=== PATIENT | male | born 1965 | race Caucasian/White ===

== ENCOUNTER → 2016-03-15 | Outpatient (CLI) | payer BC ==
[2016-03-15 09:03] LABS: ALT 53 U/L (21-72); AST 29 U/L (17-59); Cholesterol 180 mg/dL (<200); Creatine Kinase 164 U/L (55-170); HDL Cholesterol 61 mg/dL (40-60); Triglycerides 92 mg/dL (<150)
== END | disposition home or self-care (01) ==
LOC: LABWHC1 08:13
PROVIDERS: ATTEND Internal Medicine
DX: E78.2 Mixed hyperlipidemia (principal)
CPT/HCPCS: 36415; 80061; 82550; 84450; 84460

== ENCOUNTER → 2016-04-09 | Outpatient (CLI) | payer BC ==
--- NOTE | 2016-04-09 09:06 | US ---
EXAMINATION TYPE: US kidneys/renal and bladder DATE OF EXAM: 04/09/2016 7:18 AM COMPARISON: CT abdomen August 03, 2015. CLINICAL HISTORY: R31.9 HEMATURIA. EXAM MEASUREMENTS: Right Kidney: 10.4 x 5.4 x 5.4 cm Left Kidney: 10.7 x 5.4 x 5.0 cm TECHNOLOGIST IMPRESSION: Right Kidney: No hydronephrosis or masses seen Left Kidney: No hydronephrosis or masses seen Bladder: wnl Bilateral Jets seen: Yes There is no evidence for hydronephrosis at this point in time. No masses are identified. The urinar y bladder is anechoic. Bilateral ureteral jets are seen. IMPRESSION: No significant finding is seen to account for patient's symptoms.
== END | disposition home or self-care (01) ==
LOC: RADUSWWP 06:55
PROVIDERS: ATTEND Internal Medicine
DX: R31.9 Hematuria, unspecified (principal)
CPT/HCPCS: 76770

== ENCOUNTER → 2016-07-13 | Outpatient (CLI) | payer BC ==
[2016-07-13 10:05] LABS: ALT 41 U/L (21-72); AST 23 U/L (17-59); Cholesterol 173 mg/dL (<200); Creatine Kinase 148 U/L (55-170); HDL Cholesterol 69 mg/dL (40-60); Triglycerides 76 mg/dL (<150)
== END | disposition home or self-care (01) ==
LOC: LABWHC1 08:58
PROVIDERS: ATTEND Internal Medicine
DX: E78.2 Mixed hyperlipidemia (principal)
CPT/HCPCS: 36415; 80061; 82550; 84450; 84460

== ENCOUNTER → 2016-10-11 | Outpatient (CLI) | payer BC ==
[2016-10-11 09:24] LABS: CH 32.8; CHCM 34.1; HCT 49.3 % (39.0-53.0); HDW 2.36; HGB 15.9 gm/dL (13.0-17.5); MCH 31.2 pg (25.0-35.0); MCHC 32.3 g/dL (31.0-37.0); MCV 96.5 fL (80.0-100.0); Mean Platelet Volume 7.9; RBC 5.11 m/uL (4.30-5.90); RDW 13.8 % (11.5-15.5); WBC 5.7 k/uL (3.8-10.6)
[2016-10-11 09:49] LABS: Appearance,Urine Clear (Clear); Bilirubin,Urine Negative (Negative); Glucose,Urine (UA) Negative (Negative); Ketones,Urine Negative (Negative); Leukocyte Esterase,Urine Negative (Negative); Mucus,Urine Rare /hpf; Nitrite,Urine Negative (Negative); Particle Count 2361; Protein,Urine 1+ (Negative); RBC,Urine 2 /hpf (0-5); Specific Gravity,Urine 1.021 (1.001-1.035); Squamous Epithelial Cell,Urine <1 /hpf (0-4); UA Billing (MACRO vs. MICRO) MICRO; Urobilinogen,Urine <2.0 mg/dL (<2.0); WBC,Urine <1 /hpf (0-5)
[2016-10-11 10:40] LABS: ALT 48 U/L (21-72); AST 26 U/L (17-59); Alkaline Phosphatase 64 U/L (38-126); Anion Gap 10 mmol/L; Blood Urea Nitrogen 22 mg/dL (9-20); Calcium 9.5 mg/dL (8.4-10.2); Carbon Dioxide 25 mmol/L (22-30); Chloride 107 mmol/L (98-107); Cholesterol 170 mg/dL (<200); Glucose 111 mg/dL (74-99); HDL Cholesterol 66 mg/dL (40-60); Non-African American GFR(MDRD) >60 (>60 ml/min/1.73 sqM); Potassium 4.5 mmol/L (3.5-5.1); Sodium 142 mmol/L (137-145); Total Bilirubin 0.6 mg/dL (0.2-1.3); Total Protein 6.8 g/dL (6.3-8.2)
[2016-10-11 11:13] LABS: Prostate Specific Antigen 0.66 ng/mL (0.00-4.00)
--- NOTE | 2016-10-11 12:05 | XR ---
EXAMINATION TYPE: XR chest 2V DATE OF EXAM: 10/11/2016 COMPARISON: Prior chest x-ray 06/03/2015 HISTORY: Physical TECHNIQUE: Frontal and lateral views of the chest are obtained. FINDINGS: There is no focal air space opacity, pleural effusion, or pneumothorax seen. The cardiac silhouette size is within normal limits. The osseous structures are intact. IMPRESSION: No acute cardiopulmonary process.
== END | disposition home or self-care (01) ==
LOC: LABWHC1 08:57
PROVIDERS: ATTEND Internal Medicine
DX: Z00.00 Encounter for general adult medical examination without abnormal findings (principal); E78.2 Mixed hyperlipidemia; K21.0 Gastro-esophageal reflux disease with esophagitis; R31.9 Hematuria, unspecified
CPT/HCPCS: 36415; 71020; 80053; 80061; 81001; 82272; 84153; 84439; 84443; 85027

== ENCOUNTER → 2017-06-17 | Outpatient (CLI) | payer BC ==
[2017-06-17 08:42] LABS: Cholesterol 163 mg/dL (<200); Glucose 102 mg/dL (74-99); HDL Cholesterol 57 mg/dL (40-60); LDL Cholesterol,Calculated 85 mg/dL (0-99); Triglycerides 107 mg/dL (<150)
[2017-06-17 20:33] LABS: Hemoglobin A1C 5.7 % (4.0-6.0)
== END | disposition home or self-care (01) ==
LOC: LABWHC1 08:10
PROVIDERS: ATTEND Internal Medicine
DX: E78.2 Mixed hyperlipidemia (principal); R73.9 Hyperglycemia, unspecified
CPT/HCPCS: 36415; 80061; 82947; 83036

== ENCOUNTER → 2018-03-02 | Outpatient (CLI) | payer BC ==
[2018-03-02 08:25] LABS: HCT 45.8 % (39.0-53.0); HGB 15.2 gm/dL (13.0-17.5); MCH 31.4 pg (25.0-35.0); MCHC 33.2 g/dL (31.0-37.0); MCV 94.7 fL (80.0-100.0); Mean Platelet Volume 7.1; Platelet Count 199 k/uL (150-450); RBC 4.84 m/uL (4.30-5.90); WBC 4.9 k/uL (3.8-10.6)
--- NOTE | 2018-03-02 08:48 | XR ---
EXAMINATION TYPE: XR shoulder complete LT DATE OF EXAM: 03/02/2018 CLINICAL HISTORY: Left shoulder pain with difficulty elevating the left shoulder. Fall several years ago. TECHNIQUE: Three views of the left shoulder are obtained. COMPARISON: None. FINDINGS: There is no acute fracture/dislocation evident in the left shoulder. The acromioclavicula r joint demonstrates moderate arthropathy with marginal osteophytes and capsular hypertrophy. The vi sualized ribs are intact and unremarkable. IMPRESSION: There is no acute fracture or dislocation in the left shoulder. Moderate left acromiocla vicular arthropathy. MRI could evaluate the rotator cuff given the patient's symptoms.
[2018-03-02 16:16] LABS: LDL Cholesterol,Calculated 94.6 mg/dL (0.0-131.0); VLDL Calculation 16.4 mg/dL (5.00-40.00)
[2018-03-02 16:17] LABS: Albumin 4.4 g/dL (3.80-4.90); Albumin/Globulin Ratio 2.32 (1.20-2.10); Anion Gap 5.3 mmol/L (4.00-12.00); Calcium 8.9 mg/dL (8.7-10.3); Carbon Dioxide 29.7 mmol/L (21.6-31.8); Globulin 1.9 g/dL (1.6-3.3); Potassium 4.3 mmol/L (3.5-5.5); Total Bilirubin 0.7 mg/dL (0.3-1.2); Total Protein 6.3 g/dL (6.2-8.2)
[2018-03-02 16:23] LABS: T4, Free (Free Thyroxine) 1.1 ng/dL (0.80-1.80)
== END ==
LOC: LABWHC1 08:08
PROVIDERS: ATTEND Internal Medicine
DX: M19.012 Primary osteoarthritis, left shoulder (principal); I11.9 Hypertensive heart disease without heart failure; E78.2 Mixed hyperlipidemia; I49.9 Cardiac arrhythmia, unspecified; K21.0 Gastro-esophageal reflux disease with esophagitis; N40.0 Benign prostatic hyperplasia without lower urinary tract symptoms; Z00.00 Encounter for general adult medical examination without abnormal findings
CPT/HCPCS: 36415; 80053; 80061; 82272; 84153; 84439; 84443; 85027

== ENCOUNTER 2019-11-18 18:42 | Observation (INO) | payer BC ==
--- NOTE | 2019-11-18 19:36 | ED ---
General Adult HPI - General Chief complaint: Chest Pain Stated complaint: Chest pain Time Seen by Provider: 11/18/19 19:02 Source: patient, RN notes reviewed, old records reviewed Mode of arrival: ambulatory Limitations: no limitations - History of Present Illness Initial comments: 54-year-old male with 1 day history of left-sided chest pain. Patient states his symptoms began today. He states it is somewhat positional. Additionally has dyspnea and the pain is worse with deep inspiration. He denies history of CAD, denies history of DVT or PE. He reports a minor right ankle injury approximately one week ago removing a boat dock. No fever. No cough. Patient was seen at urgent care and sent into the emergency department for evaluation including laboratory testing, troponin. - Related Data Home Medications Medication Instructions Recorded Confirmed Aspirin EC [Ecotrin Low Dose] 81 mg PO DAILY 11/18/19 11/18/19 Atorvastatin [Lipitor] 20 mg PO DAILY 11/18/19 11/18/19 Allergies Allergy/AdvReac Type Severity Reaction Status Date / Time No Known Allergies Allergy Verified 11/18/19 20:36 Review of Systems ROS Statement: Those systems with pertinent positive or pertinent negative responses have been documented in the HPI. ROS Other: All systems not noted in ROS Statement are negative. Past Medical History Past Medical History: Hyperlipidemia History of Any Multi-Drug Resistant Organisms: None Reported Additional Past Surgical History / Comment(s): colonoscopy Past Psychological History: No Psychological Hx Reported Smoking Status: Never smoker Past Alcohol Use History: Occasional Past Drug Use History: None Reported General Exam Limitations: no limitations General appearance: alert, in no apparent distress Head exam: Present: atraumatic, normocephalic Eye exam: Present: normal appearance, PERRL ENT exam: Present: normal exam Neck exam: Present: normal inspection. Absent: tenderness, meningismus Respiratory exam: Present: respiratory distress (Mild), decreased breath sounds (Decreased lung sounds left lung base) Cardiovascular Exam: Present: regular rate, normal rhythm. Absent: bradycardia, tachycardia GI/Abdominal exam: Present: soft. Absent: distended, tenderness, guarding Extremities exam: Present: normal inspection. Absent: pedal edema Neurological exam: Present: alert, oriented X3, CN II-XII intact. Absent: motor sensory deficit Psychiatric exam: Present: normal affect, normal mood Skin exam: Present: warm, dry, intact. Absent: cyanosis, diaphoretic Course Vital Signs 11/18/19 11/18/19 18:53 20:45 Temperature 98.7 F Pulse Rate 87 86 Respiratory 18 18 Rate Blood Pressure 145/72 115/75 O2 Sat by Pulse 98 95 Oximetry EKG Findings - EKG Comments: EKG Findings:: EKG: Sinus rhythm with PVC, LVH, rate of 72, NE interval 154, QRS duration 90, QTC [address] segment elevation. Medical Decision Making - Medical Decision Making 54-year-old male otherwise healthy presenting for evaluation of left-sided chest pain. History is concerning for pulmonary embolism. Workup was initiated. Patient has EKG showing sinus rhythm with no ischemic changes. Chest x-ray negative for pneumothorax. CT angiography is performed and shows a large filling defect in the left lung base. Patient is started on heparin. Patient has stable hemoglobin, normal troponin, and overall normal laboratory testing. Case discussed with Dr. Reyes covering for vascular surgery, recommends echo and will follow patient for need for intervention. Case discussed with Dr. Moses. - Lab Data Result diagrams: 11/18/19 19:29 11/18/19 19:29 Lab Results 11/18/19 11/18/19 11/18/19 Range/Units 19:29 19:29 19:29 WBC 12.0 H (3.8-10.6) k/uL RBC 4.76 (4.30-5.90) m/uL Hgb 14.6 (13.0-17.5) gm/dL Hct 44.1 (39.0-53.0) % MCV 92.6 (80.0-100.0) fL MCH 30.7 (25.0-35.0) pg MCHC 33.2 (31.0-37.0) g/dL RDW 12.6 (11.5-15.5) % Plt Count 241 (150-450) k/uL Neutrophils % 83 % Lymphocytes % 8 % Monocytes % 7 % Eosinophils % 1 % Basophils % 0 % Neutrophils # 9.9 H (1.3-7.7) k/uL Lymphocytes # 1.0 (1.0-4.8) k/uL Monocytes # 0.9 (0-1.0) k/uL Eosinophils # 0.1 (0-0.7) k/uL Basophils # 0.1 (0-0.2) k/uL PT 9.7 (9.0-12.0) sec INR 0.9 (<1.2) APTT 25.8 (22.0-30.0) sec Sodium 137 (137-145) mmol/L Potassium 4.3 (3.5-5.1) mmol/L Chloride 103 (98-107) mmol/L Carbon Dioxide 26 (22-30) mmol/L Anion Gap 8 mmol/L BUN 23 H (9-20) mg/dL Creatinine 1.02 (0.66-1.25) mg/dL Est GFR (CKD-EPI)AfAm >90 (>60 ml/min/1.73 sqM) Est GFR (CKD-EPI)NonAf 84 (>60 ml/min/1.73 sqM) Glucose 125 H (74-99) mg/dL Calcium 9.6 (8.4-10.2) mg/dL Magnesium 1.9 (1.6-2.3) mg/dL Total Bilirubin 0.9 (0.2-1.3) mg/dL AST 39 (17-59) U/L ALT 32 (4-49) U/L Alkaline Phosphatase 73 (38-126) U/L Troponin I (0.000-0.034) ng/mL Total Protein 7.3 (6.3-8.2) g/dL Albumin 4.4 (3.5-5.0) g/dL 11/18/19 Range/Units 19:29 WBC (3.8-10.6) k/uL RBC (4.30-5.90) m/uL Hgb (13.0-17.5) gm/dL Hct (39.0-53.0) % MCV (80.0-100.0) fL MCH (25.0-35.0) pg MCHC (31.0-37.0) g/dL RDW (11.5-15.5) % Plt Count (150-450) k/uL Neutrophils % % Lymphocytes % % Monocytes % % Eosinophils % % Basophils % % Neutrophils # (1.3-7.7) k/uL Lymphocytes # (1.0-4.8) k/uL Monocytes # (0-1.0) k/uL Eosinophils # (0-0.7) k/uL Basophils # (0-0.2) k/uL PT (9.0-12.0) sec INR (<1.2) APTT (22.0-30.0) sec Sodium (137-145) mmol/L Potassium (3.5-5.1) mmol/L Chloride (98-107) mmol/L Carbon Dioxide (22-30) mmol/L Anion Gap mmol/L BUN (9-20) mg/dL Creatinine (0.66-1.25) mg/dL Est GFR (CKD-EPI)AfAm (>60 ml/min/1.73 sqM) Est GFR (CKD-EPI)NonAf (>60 ml/min/1.73 sqM) Glucose (74-99) mg/dL Calcium (8.4-10.2) mg/dL Magnesium (1.6-2.3) mg/dL Total Bilirubin (0.2-1.3) mg/dL AST (17-59) U/L ALT (4-49) U/L Alkaline Phosphatase (38-126) U/L Troponin I <0.012 (0.000-0.034) ng/mL Total Protein (6.3-8.2) g/dL Albumin (3.5-5.0) g/dL Critical Care Time Critical Care Time: Yes Total Critical Care Time: 35 Disposition Clinical Impression: Pulmonary embolism Disposition: ADMITTED IP TO THIS [facility] Condition: Stable Is patient prescribed a controlled substance at d/c from ED?: No Referrals: Deng French DO [Doctor of Osteopathic Medicine] - 1-2 days Decision to Admit Reason: Admit from EC Decision Date: 11/18/19 Decision Time: 21:01
[2019-11-18 19:45] LABS: Basophils # (A) 0.1 k/uL (0-0.2); Basophils % (A) 0 %; Eosinophils # (A) 0.1 k/uL (0-0.7); Eosinophils % (A) 1 %; HCT 44.1 % (39.0-53.0); HGB 14.6 gm/dL (13.0-17.5); Lymphocytes % (A) 8 %; MCH 30.7 pg (25.0-35.0); MCHC 33.2 g/dL (31.0-37.0); MCV 92.6 fL (80.0-100.0); Mean Platelet Volume 7.3; Monocytes # (A) 0.9 k/uL (0-1.0); Monocytes % (A) 7 %; Neutrophils # (A) 9.9 k/uL (1.3-7.7); Neutrophils % (A) 83 %; Platelet Count 241 k/uL (150-450); RBC 4.76 m/uL (4.30-5.90); RDW 12.6 % (11.5-15.5)
[2019-11-18 19:54] LABS: INR 0.9 (<1.2); Prothrombin Time 9.7 sec (9.0-12.0)
[2019-11-18 19:55] LABS: Partial Thromboplastin Time 25.8 sec (22.0-30.0)
[2019-11-18 19:58] LABS: ALT 32 U/L (4-49); AST 39 U/L (17-59); African American GFR (CKD) >90 (>60 ml/min/1.73 sqM); Albumin 4.4 g/dL (3.5-5.0); Alkaline Phosphatase 73 U/L (38-126); Anion Gap 8 mmol/L; Blood Urea Nitrogen 23 mg/dL (9-20); Calcium 9.6 mg/dL (8.4-10.2); Carbon Dioxide 26 mmol/L (22-30); Chloride 103 mmol/L (98-107); Glucose 125 mg/dL (74-99); Magnesium 1.9 mg/dL (1.6-2.3); Non-African American GFR(CKD) 84 (>60 ml/min/1.73 sqM); Potassium 4.3 mmol/L (3.5-5.1); Sodium 137 mmol/L (137-145); Total Bilirubin 0.9 mg/dL (0.2-1.3); Total Protein 7.3 g/dL (6.3-8.2)
--- NOTE | 2019-11-18 20:11 | XR ---
EXAMINATION TYPE: XR chest 1V portable DATE OF EXAM: 11/18/2019 COMPARISON: NONE HISTORY: Chest pain TECHNIQUE: FINDINGS: There is poor inspiration. Heart appears normal. There is no heart failure. There is a mini mal infiltrate at the lateral left lung base. Pulmonary vascularity is normal. The bony thorax is int act. IMPRESSION: Poor inspiration with a minimal infiltrate lateral aspect left lower lobe that appears ne w compared to old exam.
[2019-11-18] MEDS ORDERED: HEPARIN SODIUM,PORCINE 10,000 UNIT/ML 1 ML VIAL IV ONE (20:15)
[2019-11-18] MEDS ORDERED: HEPARIN SODIUM,PORCINE 5,000 UNIT/ML 1 ML VIAL IV PRN (20:15)
--- NOTE | 2019-11-18 20:19 | CT ---
EXAMINATION TYPE: CT angio chest DATE OF EXAM: 11/18/2019 COMPARISON: None HISTORY: Shortness of breath and chest pain. CT DLP: 558.9 mGycm Automated exposure control for dose reduction was used. CONTRAST: Performed with IV Contrast, patient injected with 100ml mL of Isovue 370. There is some patchy airspace infiltrate left lower lobe. There is small left pleural effusion. Heart size is normal. There is no pericardial effusion. There is no mediastinal adenopathy. Thoracic aorta is intact. There is no aneurysm or dissection. There are large filling defects in the branches of the left pulmonary artery involving left lower lob e and left upper lobe. I see no definite filling defect in the right pulmonary artery. The bony thora x is intact. IMPRESSION: . There is large filling defect embolism in the left lower lobe pulmonary artery at the bifurcation. There is some infiltrate left lower lobe. This could relate to developing pulmonary infarct. This exam was discussed with Dr. Sylvester at 8:20 PM.
[2019-11-18] MEDS: HEPARIN SOD,PORK IN 0.45% NACL 25,000 UNIT in 0.45% NACL 1 250ML.BAG IV SCH (20:38)
[2019-11-18] MEDS ORDERED: NALOXONE 0.4 MG/ML 1 ML VIAL IV PRN (20:56)
[2019-11-18] MEDS: HYDROmorphone 0.5 MG/0.5 ML SYRINGE IVP PRN (22:44)
[2019-11-19] MEDS: SODIUM CHLORIDE 0.9% 1,000 ML IV SCH ×2 (00:07→23:11)
[2019-11-19] MEDS: HYDROmorphone 0.5 MG/0.5 ML SYRINGE IVP PRN ×4 (02:21→16:38)
[2019-11-19 03:19] LABS: Basophils # (A) 0.1 k/uL (0-0.2); Basophils % (A) 0 %; Eosinophils % (A) 0 %; HCT 41.7 % (39.0-53.0); HGB 13.9 gm/dL (13.0-17.5); Lymphocytes % (A) 7 %; MCH 31.7 pg (25.0-35.0); MCHC 33.4 g/dL (31.0-37.0); MCV 95.1 fL (80.0-100.0); Mean Platelet Volume 7.3; Monocytes # (A) 1.2 k/uL (0-1.0); Monocytes % (A) 8 %; Neutrophils # (A) 12.3 k/uL (1.3-7.7); Neutrophils % (A) 84 %; Platelet Count 224 k/uL (150-450); RBC 4.38 m/uL (4.30-5.90); RDW 13.1 % (11.5-15.5); WBC 14.7 k/uL (3.8-10.6)
--- NOTE | 2019-11-19 09:01 | US ---
EXAMINATION TYPE: US venous doppler duplex LE DATE OF EXAM: 11/19/2019 8:44 AM COMPARISON: NONE CLINICAL HISTORY: pulmonary embolism, leg injury. Right leg injury 2 weeks ago. SIDE PERFORMED: Bilateral TECHNIQUE: The lower extremity deep venous system is examined utilizing real time linear array sonog bebeto with graded compression, doppler sonography and color-flow sonography. VESSELS IMAGED: External Iliac Vein (EIV) Common Femoral Vein Deep Femoral Vein Greater Saphenous Vein * Femoral Vein Popliteal Vein Small Saphenous Vein * Proximal Calf Veins (* superficial vessels) Right lower extremity to the level of the knee shows normal venous compressibility, no abnormal lumin al echoes, normal waveforms Right Leg: Negative for DVT Left Leg: Positive for DVT, Clot seen proximal deep femoral vein, proximal and mid popliteal vein The left common femoral vein shows low level internal echoes, lack of compressibility and color flow, venous waveform extending into the deep femoral vein. The popliteal vein also shows a lack of compre ssibility in the left, low-level internal echoes. IMPRESSION: Left leg is positive for deep venous thrombosis A Red level critical message alert has been initiated for Gloria Faith via the [employer] System on 11/19/2019 8:59 AM. This message alert has been sent to Gloria Faith via the preferences provided by the clinician for the receipt of Radiology Critical Findings. Message ID [id number].
[2019-11-19] MEDS ORDERED: diazePAM 5 MG TAB PO PRN (09:27)
[2019-11-19] MEDS ORDERED: HYDROcodone/APAP 5-325MG 1 EACH TAB PO PRN (09:30)
[2019-11-19] MEDS: KETOROLAC 15 MG/ML 1 ML VIAL IVP SCH ×3 (11:24→23:23)
[2019-11-19] MEDS: HEPARIN SOD,PORK IN 0.45% NACL 25,000 UNIT in 0.45% NACL 1 250ML.BAG IV SCH (11:31)
--- NOTE | 2019-11-19 12:09 | P.GSCN ---
History of Present Illness Consult date: 11/19/19 Reason for Consult: Pulmonary embolism History of present illness: This is a 54-year-old male who presented to urgent care with left-sided chest pain yesterday. He was up so quickly sent to the emergency department for further evaluation. He reports the pain seemed somewhat positional and he had increased shortness of breath and pain with deep breaths. He states he did have a minor right ankle injury about a week ago where he had his ankle on a boat dock. He denies any recent traveling, surgeries, history of DVT or PE. He does not recall any clotting disorders for himself or family history. CT angiogram of chest showing a large filling defect embolism in the left lower lobe pulmonary artery at the bifurcation. There is some infiltrate left lower lobe this could relate to developing pulmonary infarct. The patient has been started on a heparin drip, echocardiogram has been ordered. He is currently complaining of chest pain in the left upper chest eating to his back and shortness of breath, especially with exertion. Review of Systems A 14 point review of systems was completed and all pertinent positives and negatives as stated in the HPI. Past Medical History Past Medical History: Hyperlipidemia History of Any Multi-Drug Resistant Organisms: None Reported Additional Past Surgical History / Comment(s): colonoscopy Past Anesthesia/Blood Transfusion Reactions: No Reported Reaction Past Psychological History: No Psychological Hx Reported Smoking Status: Never smoker Past Alcohol Use History: Occasional Past Drug Use History: None Reported Medications and Allergies Home Medications Medication Instructions Recorded Confirmed Type Aspirin EC [Ecotrin Low Dose] 81 mg PO DAILY 11/18/19 11/18/19 History Atorvastatin [Lipitor] 20 mg PO DAILY 11/18/19 11/18/19 History Allergies Allergy/AdvReac Type Severity Reaction Status Date / Time No Known Allergies Allergy Verified 11/18/19 20:36 Surgical - Exam Vital Signs Temp Pulse Resp BP Pulse Ox 98.7 F 87 18 145/72 98 11/18/19 18:53 11/18/19 18:53 11/18/19 18:53 11/18/19 18:53 11/18/19 18:53 General appearance: The patient is alert, oriented, in no acute distress. A ppears anxious. HET: Head is normocephalic and atraumatic. Neck: Supple without lymphadenopathy. Trachea midline. Heart: S1 S2. Regular rate and rhythm. Lungs: Rapid shallow breathing. Clear to auscultation. Abdomen: Soft, nontender, nondistended with bowel sounds. No palpable organomegaly or masses. Extremities: Normal skin color and turgor. No redness or warmth to left lower extremity. Mild nonpitting edema. Palpable bilateral femoral, popliteal, TP and DP pulses. Neurological: No focal deficits. Strength and sensation are grossly intact. Results CT angiogram of chest is a large filling defect embolism in the left lower lobe pulmonary artery at the bifurcation. There is some infiltrate of the left lower lobe. This could relate to developing pulmonary infarct. Echocardiogram pending Chest x-ray: Poor inspiration with minimal infiltrate lateral aspect left lower lobe that appears new compared to old exam - Labs 11/19/19 02:40 11/18/19 19:29 Abnormal Lab Results - Last 24 Hours (Table) 11/18/19 11/18/19 11/19/19 Range/Units 19:29 19:29 02:40 WBC 12.0 H (3.8-10.6) k/uL Neutrophils # 9.9 H (1.3-7.7) k/uL Monocytes # (0-1.0) k/uL APTT 53.2 H (22.0-30.0) sec BUN 23 H (9-20) mg/dL Glucose 125 H (74-99) mg/dL 11/19/19 Range/Units 02:40 WBC 14.7 H (3.8-10.6) k/uL Neutrophils # 12.3 H (1.3-7.7) k/uL Monocytes # 1.2 H (0-1.0) k/uL APTT (22.0-30.0) sec BUN (9-20) mg/dL Glucose (74-99) mg/dL Diabetes panel 11/18/19 Range/Units 19:29 Sodium 137 (137-145) mmol/L Potassium 4.3 (3.5-5.1) mmol/L Chloride 103 (98-107) mmol/L Carbon Dioxide 26 (22-30) mmol/L BUN 23 H (9-20) mg/dL Creatinine 1.02 (0.66-1.25) mg/dL Glucose 125 H (74-99) mg/dL Calcium 9.6 (8.4-10.2) mg/dL AST 39 (17-59) U/L ALT 32 (4-49) U/L Alkaline Phosphatase 73 (38-126) U/L Total Protein 7.3 (6.3-8.2) g/dL Albumin 4.4 (3.5-5.0) g/dL Calcium panel 11/18/19 Range/Units 19:29 Calcium 9.6 (8.4-10.2) mg/dL Albumin 4.4 (3.5-5.0) g/dL Pituitary panel 11/18/19 Range/Units 19:29 Sodium 137 (137-145) mmol/L Potassium 4.3 (3.5-5.1) mmol/L Chloride 103 (98-107) mmol/L Carbon Dioxide 26 (22-30) mmol/L BUN 23 H (9-20) mg/dL Creatinine 1.02 (0.66-1.25) mg/dL Glucose 125 H (74-99) mg/dL Calcium 9.6 (8.4-10.2) mg/dL Adrenal panel 11/18/19 Range/Units 19:29 Sodium 137 (137-145) mmol/L Potassium 4.3 (3.5-5.1) mmol/L Chloride 103 (98-107) mmol/L Carbon Dioxide 26 (22-30) mmol/L BUN 23 H (9-20) mg/dL Creatinine 1.02 (0.66-1.25) mg/dL Glucose 125 H (74-99) mg/dL Calcium 9.6 (8.4-10.2) mg/dL Total Bilirubin 0.9 (0.2-1.3) mg/dL AST 39 (17-59) U/L ALT 32 (4-49) U/L Alkaline Phosphatase 73 (38-126) U/L Total Protein 7.3 (6.3-8.2) g/dL Albumin 4.4 (3.5-5.0) g/dL Assessment and Plan Assessment: 1. Pulmonary embolism 2. Hyperlipidemia Plan: 1. Echocardiogram to evaluate for right heart strain ordered, results pending 2. Venous Doppler of bilateral lower extremities ordered, positive for left DVT 3. Continue heparin drip 4. Will add Valium 5 mg by mouth twice a day for anxiety and agitation 5. Pain control 6. Further recommendations to follow Thank you for this kind referral and the opportunity to participate in the care of your patient. This consultation was discussed with Dr. Reyes. The impressi on and plan of care have been directed as dictated.
--- NOTE | 2019-11-19 12:39 | P.HPIM ---
History of Present Illness This is a pleasant 54-year-old male came in with complaints of pleuritic chest pain on the left side as well as some pain in the left leg area. Patient had a CAT scan of the chest which did show extensive pulmonary embolism predominantly in the left side as well as the left lower lobe pulmonary artery at the bifurcation along with some coronary infarct in the left lower lobe. Patient on heparin drip patient was switched Eliquis. Patient is presently in status frogs and. Patient is feeling better after a Toradol for pain. Patient denied any fever chills patient denied recent travel or recent surgery, patient is up-to-date with his cancer screenings. Patient denied any family history of blood clots. Echocardiogram was ordered. Patient had a Doppler of left lower extremity which showed DVT in the left leg as well. Review of Systems REVIEW OF SYSTEMS: CONSTITUTIONAL: No fever, no malaise, no fatigue. HEENT: No recent visual problems or hearing problems. Denied any sore throat. CARDIOVASCULAR: No orthopnea, PND, no palpitations, no syncope. PULMONARY: no cough, no hemoptysis. GASTROINTESTINAL: No diarrhea, no nausea, no vomiting, no abdominal pain. NEUROLOGICAL: No headaches, no weakness, no numbness. HEMATOLOGICAL: Denies any bleeding or petechiae. GENITOURINARY: Denies any burning micturition, frequency, or urgency. MUSCULOSKELETAL/RHEUMATOLOGICAL: Denies any joint pain, swelling, or any muscle pain. ENDOCRINE: Denies any polyuria or polydipsia. The rest of the 14-point review of systems is negative. Past Medical History Past Medical History: Hyperlipidemia History of Any Multi-Drug Resistant Organisms: None Reported Additional Past Surgical History / Comment(s): colonoscopy Past Anesthesia/Blood Transfusion Reactions: No Reported Reaction Past Psychological History: No Psychological Hx Reported Smoking Status: Never smoker Past Alcohol Use History: Occasional Past Drug Use History: None Reported Medications and Allergies Home Medications Medication Instructions Recorded Confirmed Type Aspirin EC [Ecotrin Low Dose] 81 mg PO DAILY 11/18/19 11/18/19 History Atorvastatin [Lipitor] 20 mg PO DAILY 11/18/19 11/18/19 History Allergies Allergy/AdvReac Type Severity Reaction Status Date / Time No Known Allergies Allergy Verified 11/18/19 20:36 Physical Exam Vitals: Vital Signs Temp Pulse Pulse Resp BP BP Pulse Ox 09/18/20 08:55 98.7 F 88 20 141/77 95 11/19/19 04:00 91 20 151/97 96 11/19/19 03:40 88 20 11/19/19 00:00 98.5 F 88 20 131/87 95 11/18/19 22:10 98.7 F 86 16 125/79 95 11/18/19 22:00 16 122/72 95 11/18/19 21:30 98.5 F 88 22 117/71 95 11/18/19 21:00 16 108/77 95 11/18/19 20:45 86 18 115/75 95 11/18/19 20:30 18 122/84 95 11/18/19 20:00 202/166 95 11/18/19 19:30 29 H 145/102 95 11/18/19 19:07 80 20 96 11/18/19 18:53 98.7 F 87 18 145/72 98 Intake and Output 11/18/19 11/19/19 11/19/19 22:59 06:59 14:59 Intake Total 475 Balance 475 Intake: Intake, IV Titration 250 Amount Heparin Sod,Pork in 0.45% 250 NaCl 25,000 unit In 0.45 % NaCl 1 250ml.bag @ 18 UNITS/KG/HR 18.126 mls/hr IV .[id number] [facility] Rx#: [id number] Oral 225 Other: Voiding Method Toilet Weight 100.698 kg 120.8 kg PHYSICAL EXAMINATION: GENERAL: The patient is alert and oriented x3, not in any acute distress. Well developed, well nourished. HEENT: Pupils are round and equally reacting to light. EOMI. No scleral icterus. No conjunctival pallor. Normocephalic, atraumatic. No pharyngeal erythema. No thyromegaly. CARDIOVASCULAR: S1 and S2 present. No murmurs, rubs, or gallops. PULMONARY: Chest is clear to auscultation, no wheezing or crackles. ABDOMEN: Soft, nontender, nondistended, normoactive bowel sounds. No palpable organomegaly. MUSCULOSKELETAL: No joint swelling or deformity. EXTREMITIES: No cyanosis, clubbing, or pedal edema. NEUROLOGICAL: Gross neurological examination did not reveal any focal deficits. SKIN: No rashes. Results CBC & Chem 7: 11/19/19 02:40 11/18/19 19:29 Labs: Abnormal Lab Results - Last 24 Hours (Table) 11/18/19 11/18/19 11/19/19 Range/Units 19:29 19:29 02:40 WBC 12.0 H (3.8-10.6) k/uL Neutrophils # 9.9 H (1.3-7.7) k/uL Monocytes # (0-1.0) k/uL APTT 53.2 H (22.0-30.0) sec BUN 23 H (9-20) mg/dL Glucose 125 H (74-99) mg/dL 11/19/19 Range/Units 02:40 WBC 14.7 H (3.8-10.6) k/uL Neutrophils # 12.3 H (1.3-7.7) k/uL Monocytes # 1.2 H (0-1.0) k/uL APTT (22.0-30.0) sec BUN (9-20) mg/dL Glucose (74-99) mg/dL Thrombosis Risk Factor Assmnt - Choose All That Apply Any of the Below Risk Factors Present?: Yes Each Factor Represents 1 point: Age 41-60 years Other Risk Factors: Yes Each Risk Factor Represents 3 Points: History of DVT/PE Thrombosis Risk Factor Assessment Total Risk Factor Score: 4 Thrombosis Risk Factor Assessment Level: Moderate Risk Assessment and Plan Plan: acute pulmonary embolism: Etiology is not known, patient may need to be on lifelong anti-correlation patient will be started on Eliquis, his anti- correlation can be held in 6 months for about a month to test for any procoagulant conditions are may benefit from evaluation by hematology. Then decision need to be made whether to continue anti-correlation for rest of his life after discussing with the patient. Echocardiac exam is pending echocardiogram was ordered for any left ventricle strain. will be continued on present pain regimen with which his pain is better controlled incentive spirometry will be ordered. -Acute hypoxic respiratory failure: Secondary to pulmonary embolism can you with anti-correlation as mentioned above -Acute left leg DVT -Hyperlipidemia.
[2019-11-19] MEDS: APIXABAN 5 MG TAB PO SCH ×2 (12:43→22:04)
[2019-11-19] MEDS: FAMOTIDINE 20 MG TAB PO SCH ×2 (12:43→22:04)
--- NOTE | 2019-11-19 19:19 | ECHOF ---
Referral Reason:PE MEASUREMENTS -------- HEIGHT: 182.9 cm WEIGHT: 120.7 kg BP: 151/97 RVIDd: 2.7 cm (< 3.3) IVSd: 1.1 cm (0.6 - 1.1) LVIDd: 4.3 cm (3.9 - 5.3) LVPWd: 1.1 cm (0.6 - 1.1) IVSs: 1.4 cm LVIDs: 2.3 cm LVPWs: 1.5 cm LA Diam: 3.7 cm (2.7 - 3.8) LAESV Index (A-L): 22.46 ml/m Ao Diam: 3.3 cm (2.0 - 3.7) AV Cusp: 2.2 cm (1.5 - 2.6) MV EXCURSION: 22.777 mm (> 18.000) MV EF SLOPE: 128 mm/s (70 - 150) EPSS: 0.3 cm MV E Timi: 1.04 m/s MV DecT: 174 ms MV A Timi: 0.79 m/s MV E/A Ratio: 1.31 FINDINGS -------- Sinus rhythm. Suboptimal image quality - poor subcostal views. The left ventricular size is normal. There is borderline concentric left ventricular hypertrophy. Overall left ventricular systolic function is normal with, an EF between 60 - 65 %. The right ventricle is normal in size. Normal LA size by volume 22+/-6 ml/m2. The right atrium is normal in size. Interatrial and interventricular septum intact. The aortic valve is trileaflet and appears structurally normal. The mitral valve is normal. The tricuspid valve appears structurally normal. The pulmonic valve was not well visualized. The aortic root size is normal. IVC Not well visulized. There is no pericardial effusion. CONCLUSIONS -------- 1. The left ventricular size is normal. 2. There is borderline concentric left ventricular hypertrophy. 3. Overall left ventricular systolic function is normal with, an EF between 60 - 65 %. 4. The aortic valve is trileaflet and appears structurally normal. 5. The mitral valve is normal. 6. There is no pericardial effusion. FAMILY EDUCATOR: Henna Pan RDCS
[2019-11-20] MEDS: KETOROLAC 15 MG/ML 1 ML VIAL IVP SCH (06:36)
[2019-11-20 08:33] LABS: Basophils % (A) 0 %; Eosinophils # (A) 0.1 k/uL (0-0.7); Eosinophils % (A) 1 %; HCT 39.3 % (39.0-53.0); HGB 12.5 gm/dL (13.0-17.5); Lymphocytes % (A) 9 %; MCV 93.7 fL (80.0-100.0); Mean Platelet Volume 7.6; Monocytes % (A) 9 %; Neutrophils % (A) 80 %; Platelet Count 214 k/uL (150-450); RBC 4.19 m/uL (4.30-5.90); RDW 13.1 % (11.5-15.5); WBC 11.2 k/uL (3.8-10.6)
[2019-11-20 08:34] LABS: Calcium 8.8 mg/dL (8.4-10.2); Potassium 4.1 mmol/L (3.5-5.1)
[2019-11-20] MEDS: FAMOTIDINE 20 MG TAB PO SCH (08:48)
[2019-11-20] MEDS: APIXABAN 5 MG TAB PO SCH (08:49)
[2019-11-20 09:34] VITALS: BP 135/85; PULSE 83; RESP 18; TEMP 99.2
--- NOTE | 2019-11-20 10:37 | P.DS ---
Providers Date of admission: 11/18/19 20:58 Attending physician: Tisha Thomas MD Consults: 11/18/19 20:57 Consult Physician Urgent Consulting Provider: Radha Reyes Consult Reason/Comments: Pulmonary embolism Do you want consulting provider notified?: Already Contacted Primary care physician: Trace Wei MD Hospital Course: 54-year-old male came in with complaints of pleuritic chest pain on the left side as well as some pain in the left leg area. Patient had a CAT scan of the chest which did show extensive pulmonary embolism predominantly in the left side as well as the left lower lobe pulmonary artery at the bifurcation along with some coronary infarct in the left lower lobe. Patient on heparin drip patient was switched Eliquis. Patient is presently in status frogs and. Patient is feeling better after a Toradol for pain. Patient denied any fever chills patient denied recent travel or recent surgery, patient is up-to-date with his cancer screenings. Patient denied any family history of blood clots. Echocardiogram was ordered. Patient had a Doppler of left lower extremity which showed DVT in the left leg as well. 11/20/2019 Patient was a evaluated by vascular surgery no further recommendations from them and patient had an echo cardiac exam which did not show any right ventricle strain. Were dyspnea on Zosyn and see how patient is doing if patient is doing well patient will be discharged on the Eliquis along with pain medications. Patient does have pulmonary infarction. PHYSICAL EXAMINATION: GENERAL: The patient is alert and oriented x3, not in any acute distress. Well developed, well nourished. HEENT: Pupils are round and equally reacting to light. EOMI. No scleral icterus. No conjunctival pallor. Normocephalic, atraumatic. No pharyngeal erythema. No thyromegaly. CARDIOVASCULAR: S1 and S2 present. No murmurs, rubs, or gallops. PULMONARY: Chest is clear to auscultation, no wheezing or crackles. ABDOMEN: Soft, nontender, nondistended, normoactive bowel sounds. No palpable organomegaly. MUSCULOSKELETAL: No joint swelling or deformity. EXTREMITIES: No cyanosis, clubbing, or pedal edema. NEUROLOGICAL: Gross neurological examination did not reveal any focal deficits. SKIN: No rashes. Assessment and Plan Plan: acute pulmonary embolism: Etiology is not known, patient may need to be on lifelong anti-correlation patient will be started on Eliquis, his anti- correlation can be held in 6 months for about a month to test for any procoagulant conditions are may benefit from evaluation by hematology. Then decision need to be made whether to continue anti-correlation for rest of his life after discussing with the patient. echocardiogram as mentioned above. -Pulmonary infarction secondary to PE -Acute hypoxic respiratory failure: Secondary to pulmonary embolism -Acute left leg DVT -Hyperlipidemia. Patient Condition at Discharge: Stable Plan - Discharge Summary Discharge Rx Participant: No New Discharge Prescriptions: New Apixaban [Eliquis Starter Pack (for VTE)] 0 mg PO DIRECTED 30 Days #1 pack HYDROcodone/APAP 10-325MG [[place] 10-325] 1 tab PO Q4HR PRN 3 Days #18 tab PRN Reason: Pain traMADol HCL [Ultram] 50 mg PO Q4HR PRN 10 Days #30 tab PRN Reason: Pain Continue Atorvastatin [Lipitor] 20 mg PO DAILY Discontinued Aspirin EC [Ecotrin Low Dose] 81 mg PO DAILY Discharge Medication List Atorvastatin [Lipitor] 20 mg PO DAILY 11/18/19 [History] Apixaban [Eliquis Starter Pack (for VTE)] 0 mg PO DIRECTED 30 Days #1 pack 11/20/19 [Rx] HYDROcodone/APAP 10-325MG [[place] 10-325] 1 tab PO Q4HR PRN 3 Days #18 tab 11/20/19 [Rx] traMADol HCL [Ultram] 50 mg PO Q4HR PRN 10 Days #30 tab 11/20/19 [Rx] Follow up Appointment(s)/Referral(s): Trace Wei MD [Primary Care Provider] - 3 Days Radha Reyes DO [STAFF PHYSICIAN] - 2 Weeks Patient Instructions/Handouts: Pulmonary Embolism (DC) Discharge Disposition: HOME SELF-CARE
== END 2019-11-20 12:44 | disposition home or self-care (01) ==
LOC: EC 18:42 → 3SCARD 20:58
PROVIDERS: ADMIT Internal Medicine; ATTEND Internal Medicine
DX: I26.99 Other pulmonary embolism without acute cor pulmonale (principal); J96.01 Acute respiratory failure with hypoxia; I82.412 Acute embolism and thrombosis of left femoral vein; E78.5 Hyperlipidemia, unspecified; I25.10 Atherosclerotic heart disease of native coronary artery without angina pectoris; I49.3 Ventricular premature depolarization; Z87.828 Personal history of other (healed) physical injury and trauma; Z79.82 Long term (current) use of aspirin; Z79.899 Other long term (current) drug therapy; Z98.890 Other specified postprocedural states
CPT/HCPCS: 96376 ×3; 96366 ×3; 96375 ×2; 96365; 99291; 36415; 93005; 93306; 80053; 80048; 83735; 84484; 85025 ×3; 85610; 85730 ×3; 71045; 93970; 71275; G0378 ×3; J1644 ×3; J1885 ×2; J1170 ×2; Q9967; 99285

== ENCOUNTER → 2019-11-22 | Outpatient (CLI) | payer BC ==
--- NOTE | 2019-11-23 07:59 | XR ---
EXAMINATION TYPE: XR chest 2V DATE OF EXAM: 11/22/2019 COMPARISON: Prior chest x-ray 11/18/2019 HISTORY: I26.99 TECHNIQUE: Frontal and lateral views of the chest are obtained. FINDINGS: Patchy density is present along the left lung base, left hemidiaphragm. No evident pneumot horax. Cardiomediastinal silhouette, pulmonary vascularity and nhung are stable. Bones are unchanged. IMPRESSION: Left lower lobe atelectasis versus pneumonia and possible associated effusion
== END | disposition home or self-care (01) ==
LOC: RAD 16:33
PROVIDERS: ATTEND Family Medicine
DX: I26.99 Other pulmonary embolism without acute cor pulmonale (principal)
CPT/HCPCS: 71046

== ENCOUNTER → 2020-02-02 | Outpatient (CLI) | payer BC ==
--- NOTE | 2020-02-02 12:00 | US ---
EXAMINATION TYPE: US abdomen complete DATE OF EXAM: 02/02/2020 COMPARISON: CT 08/03/2015 CLINICAL HISTORY: R94.5 Abnormal Liver function Test. Difficult and limited exam due to overlying bow el gas EXAM MEASUREMENTS: Liver Length: 15.1 cm Gallbladder Wall: 0. 2 cm CBD: 0.4 cm Spleen: 9.4 cm Right Kidney: 10.2 x 4.8 x 4.7 cm Left Kidney: 12.3 x 6.3 x 5.3 cm Pancreas: Obscured by bowel gas Liver: Limited visualization, heterogeneous Gallbladder: wnl Evidence for sonographic Kim's sign: No CBD: Obscured by bowel gas, visualized portions wnl Spleen: wnl Right Kidney: No hydronephrosis or masses seen Left Kidney: No hydronephrosis or masses seen Upper IVC: wnl as visualized Abd Aorta: Obscured by overlying bowel gas There is no ascites. IMPRESSION: Possible underlying hepatic steatosis, limited exam.
== END | disposition home or self-care (01) ==
LOC: RADUSWWP 08:26
PROVIDERS: ATTEND Internal Medicine Hematology & Oncology
DX: R94.5 Abnormal results of liver function studies (principal)
CPT/HCPCS: 76700

== ENCOUNTER → 2020-02-09 | Outpatient (CLI) | payer BC ==
--- NOTE | 2020-02-09 14:30 | US ---
EXAMINATION TYPE: US venous doppler duplex LE BI DATE OF EXAM: 02/09/2020 12:37 PM COMPARISON: NONE CLINICAL HISTORY: I82.5Z9 Chronic embolism and thrombosis of. h/o DVT 4 months ago on thinners and wa nted to assess progress SIDE PERFORMED: Bilateral TECHNIQUE: The lower extremity deep venous system is examined utilizing real time linear array sonog bebeto with graded compression, doppler sonography and color-flow sonography. VESSELS IMAGED: Common Femoral Vein Deep Femoral Vein Greater Saphenous Vein * Femoral Vein Popliteal Vein Small Saphenous Vein * Proximal Calf Veins (* superficial vessels) There is normal flow, compressibility, vascular waveforms. Right Leg: Negative for DVT Left Leg: Negative for DVT IMPRESSION: No evident deep venous thrombosis at or above the knees.
== END | disposition home or self-care (01) ==
LOC: RADUSWWP 12:06
PROVIDERS: ATTEND Internal Medicine Hematology & Oncology
DX: I82.5Z9 Chronic embolism and thrombosis of unspecified deep veins of unspecified distal lower extremity (principal)
CPT/HCPCS: 93970

== ENCOUNTER → 2020-03-07 | Outpatient (CLI) | payer BC ==
--- NOTE | 2020-03-07 10:44 | CT ---
EXAMINATION TYPE: CT abdomen w con DATE OF EXAM: 03/07/2020 COMPARISON: 08/03/2015. Ultrasound 02/02/2020 HISTORY: 54-year-old male R94.5, abnormal liver function test, abnormal US of liver TECHNIQUE: Contiguous axial scanning of the abdomen following administration of 100 ml Isovue 300 IV contrast. Delayed images through the kidneys and coronal/sagittal reconstructions performed. CT DLP: 921.1 mGycm Automated exposure control for dose reduction was used. FINDINGS: Heart normal size without pericardial effusion. Minimal residual curvilinear opacity remains at the p eripheral left base after patient's known pulmonary embolus. No pleural effusion. Small hiatal hernia. Liver mildly enlarged at 18.9 cm. Suspect mild fatty infiltration. Assessment limited due to late art erial phase imaging rather than portal venous phase. Portal venous system is patent. No ductal dilata tion. Gallbladder, adrenal glands, kidneys, spleen, and pancreas appear within normal limits. No dilated small bowel, free fluid, or free air. No mesenteric or retroperitoneal lymphadenopathy. Mild stool burden. No pericolonic inflammatory change. Normal appendix. Tiny fatty umbilical hernia. The pelvis is not imaged. Bones: Moderate degenerative disc disease L4-L5. IMPRESSION: 1. MILD HEPATOMEGALY (18.9 CM). SUSPECT MILD FATTY INFILTRATION OF THE LIVER. 2. SMALL HIATAL HERNIA. 3. SOME RESIDUAL PATCHY ATELECTASIS OR SCAR REMAINS AT THE LEFT BASE.
== END | disposition home or self-care (01) ==
LOC: RADCTMAIN 09:13
PROVIDERS: ATTEND Internal Medicine Hematology & Oncology
DX: K44.9 Diaphragmatic hernia without obstruction or gangrene (principal); R16.0 Hepatomegaly, not elsewhere classified; J98.11 Atelectasis
CPT/HCPCS: 74160; Q9967

== ENCOUNTER → 2020-06-06 | Outpatient (CLI) | payer BC ==
--- NOTE | 2020-06-06 10:26 | CT ---
EXAMINATION TYPE: CT angio chest DATE OF EXAM: 06/06/2020 COMPARISON: 11/23/2019 HISTORY: Pulmonary embolism CT DLP: 421.60 mGycm CONTRAST: CT chest with contrast and 3D reconstruction with MIP imaging is performed with IV Contrast, patient injected with 100 mL of Isovue 300. Contrast-enhanced CT of the chest was performed through the course of the pulmonary arteries with tracie g and mediastinal window settings submitted. 3D reconstruction with MIP imaging was also performed. PULMONARY ARTERIES: The pulmonary arteries and their major tributaries are patent. I do not see nery dence for sizable filling defect to suggest pulmonary embolic process. LUNGS: The lungs are clear and free of infiltrate. Linear parenchymal scar left lower lobe. No eviden ce for atelectasis. No pulmonary nodule or mass is detected. No pleural effusion. MEDIASTINUM: Thoracic aorta is of normal caliber,however, evaluation is limited given timing of the contrast bolus. If there is concern for thoracic aortic pathology consider BOAZ. Correlate clinicall y . The heart is not enlarged. No evidence for mediastinal mass. No mediastinal lymph nodes greater than 1cm. HILAR STRUCTURES: No evidence for mass. No hilar lymph nodes greater than 1 cm. UPPER ABDOMEN: No significant abnormality is seen. IMPRESSION: 1. No evidence for Pulmonary embolism at this time.
--- NOTE | 2020-06-06 10:33 | US ---
EXAMINATION TYPE: US venous doppler duplex LE LT DATE OF EXAM: 06/06/2020 10:19 AM COMPARISON: NONE CLINICAL HISTORY: I26.99 Pulmonary embolism. Hx of Pe and dvt on blood thinners SIDE PERFORMED: Left TECHNIQUE: The lower extremity deep venous system is examined utilizing real time linear array sonog bebeto with graded compression, doppler sonography and color-flow sonography. VESSELS IMAGED: Common Femoral Vein Deep Femoral Vein Greater Saphenous Vein * Femoral Vein Popliteal Vein Small Saphenous Vein * Proximal Calf Veins (* superficial vessels) Left Leg: Negative for DVT IMPRESSION: Grayscale, color doppler, spectral doppler imaging performed of the deep veins of the lo wer extremities. There is normal flow, compressibility, vascular waveforms.
== END | disposition home or self-care (01) ==
LOC: RADCTMAIN 09:14
PROVIDERS: ATTEND Internal Medicine Hematology & Oncology
DX: I26.99 Other pulmonary embolism without acute cor pulmonale (principal); I82.5Z2 Chronic embolism and thrombosis of unspecified deep veins of left distal lower extremity; R94.5 Abnormal results of liver function studies
CPT/HCPCS: 93971; 71275; Q9967

== ENCOUNTER 2020-09-15 13:29 | Emergency (ER) | payer BC ==
[2020-09-15 13:32] VITALS: RESP 18; TEMP 98.4
--- NOTE | 2020-09-15 13:50 | ED ---
General Adult HPI - General Chief complaint: ENT Stated complaint: mouth twitching Time Seen by Provider: 09/15/20 13:33 Source: patient, RN notes reviewed Mode of arrival: ambulatory Limitations: no limitations - History of Present Illness Initial comments: 54-year-old male with a past medical history of DVT and PE on anticoagulants presents to the emergency room for a chief complaint of "odd mouth movements." Daughter is a nurse at bedside. Reports that her father started to have mouth twitching yesterday where he moves his mouth back and forth. She took a video of him and then showed him and he stated he did not realize he was doing this. She reports that it seemed to worsen today. She called his doctor and was told to come into the emergency room. Patient states he feels fine but is under a lot of stress at work. He denies any weakness of the arms or legs. Denies any difficulty speaking.Patient has no other complaints at this time including shortness of breath, chest pain, abdominal pain, nausea or vomiting, headache, or visual changes. - Related Data Home Medications Medication Instructions Recorded Confirmed Apixaban [Eliquis] 5 mg PO BID 09/15/20 09/15/20 Braydon-Red 1 cap PO DAILY 09/15/20 09/15/20 Allergies Allergy/AdvReac Type Severity Reaction Status Date / Time No Known Allergies Allergy Verified 09/15/20 14:38 Review of Systems ROS Statement: Those systems with pertinent positive or pertinent negative responses have been documented in the HPI. ROS Other: All systems not noted in ROS Statement are negative. Past Medical History Past Medical History: Deep Vein Thrombosis (DVT), Hyperlipidemia, Pulmonary Embolus (PE) History of Any Multi-Drug Resistant Organisms: None Reported Additional Past Surgical History / Comment(s): colonoscopy Past Anesthesia/Blood Transfusion Reactions: No Reported Reaction Past Psychological History: No Psychological Hx Reported Smoking Status: Never smoker Past Alcohol Use History: Occasional Past Drug Use History: None Reported - Past Family History Father Family Medical History: Cancer Additional Family Medical History / Comment(s): colon Mother Family Medical History: Coronary Artery Disease (CAD), Hyperlipidemia, Hypertension, Myocardial Infarction (LA) General Exam Limitations: no limitations General appearance: alert, in no apparent distress Head exam: Present: atraumatic, normocephalic, normal inspection Eye exam: Present: normal appearance, PERRL, EOMI. Absent: scleral icterus, conjunctival injection, periorbital swelling ENT exam: Present: normal exam, normal oropharynx, mucous membranes moist Neck exam: Present: normal inspection, full ROM. Absent: tenderness, meningismus, lymphadenopathy Respiratory exam: Present: normal lung sounds bilaterally. Absent: respiratory distress, wheezes, rales, rhonchi, stridor Cardiovascular Exam: Present: regular rate, normal rhythm, normal heart sounds. Absent: systolic murmur, diastolic murmur, rubs, gallop, clicks GI/Abdominal exam: Present: soft, normal bowel sounds. Absent: distended, tenderness, guarding, rebound, rigid Neurological exam: Present: alert, oriented X3, normal gait Expanded Patient oriented to: Present: person, place, time Speech: Present: fluid speech Cranial nerves: EOM's Intact: Normal, Tongue Deviation: Normal, Nystagmus: Normal, Facial Sensation: Normal Cerebellar function: Heel to [place]: Normal Upper motor neuron: Pronator Drift: Normal Sensory exam: Upper Extremity Light Touch: Normal, Upper Extremity Pin Prick: Normal, Lower Extremity Pin Prick: Normal, Lower Extremity Temperature: Normal Motor strength exam: RUE: 5, LUE: 5, RLE: 5, LLE: 5 Course Vital Signs 09/15/20 09/15/20 13:30 14:52 Temperature 98.4 F Pulse Rate 63 55 L Respiratory 18 18 Rate Blood Pressure 148/91 129/86 O2 Sat by Pulse 98 97 Oximetry Medical Decision Making - Medical Decision Making Patient's mouth movement appears to be a toothache. He moves both his lips back and forth. He has no weakness of the lips. No facial droop. Patient able to smile which is symmetric. He is speaking without difficulty. However family is very concerned this could be related to laboratory abnormalities and that his doctor wanted him evaluated. We will check basic labs and a CAT scan of his brain. Laboratory evaluation is normal. CT Brain shows degenerative and nonspecific white matter change with no diagnostic evidence of acute hemorrhage or mass effect. Patient reevaluated, no focal neurologic deficits. Well-appearing. Patient can be discharged to follow up with primary care. He will return here for any worsening symptoms. - Lab Data Result diagrams: 09/15/20 13:56 09/15/20 13:56 Lab Results 09/15/20 09/15/20 Range/Units 13:56 13:56 WBC 6.1 (3.8-10.6) k/uL RBC 4.66 (4.30-5.90) m/uL Hgb 15.1 (13.0-17.5) gm/dL Hct 43.2 (39.0-53.0) % MCV 92.7 (80.0-100.0) fL MCH 32.4 (25.0-35.0) pg MCHC 34.9 (31.0-37.0) g/dL RDW 12.7 (11.5-15.5) % Plt Count 211 (150-450) k/uL MPV 7.3 Neutrophils % 67 % Lymphocytes % 23 % Monocytes % 7 % Eosinophils % 1 % Basophils % 0 % Neutrophils # 4.1 (1.3-7.7) k/uL Lymphocytes # 1.4 (1.0-4.8) k/uL Monocytes # 0.4 (0-1.0) k/uL Eosinophils # 0.1 (0-0.7) k/uL Basophils # 0.0 (0-0.2) k/uL Sodium 139 (137-145) mmol/L Potassium 4.2 (3.5-5.1) mmol/L Chloride 107 (98-107) mmol/L Carbon Dioxide 24 (22-30) mmol/L Anion Gap 8 mmol/L BUN 16 (9-20) mg/dL Creatinine 0.87 (0.66-1.25) mg/dL Est GFR (CKD-EPI)AfAm >90 (>60 ml/min/1.73 sqM) Est GFR (CKD-EPI)NonAf >90 (>60 ml/min/1.73 sqM) Glucose 99 (74-99) mg/dL Calcium 9.5 (8.4-10.2) mg/dL Magnesium 1.8 (1.6-2.3) mg/dL Disposition Clinical Impression: Facial tic Disposition: HOME SELF-CARE Condition: Good Instructions (If sedation given, give patient instructions): Tic Disorder (ED) Additional Instructions: Please follow up with primary care in 1-2 days. Return to the emergency room for any worsening symptoms. Is patient prescribed a controlled substance at d/c from ED?: No Referrals: Ac Wang III, MD [Primary Care Provider] - 1-2 days Time of Disposition: 14:32
[2020-09-15 14:12] LABS: Basophils % (A) 0 %; Eosinophils # (A) 0.1 k/uL (0-0.7); Eosinophils % (A) 1 %; HCT 43.2 % (39.0-53.0); HGB 15.1 gm/dL (13.0-17.5); Lymphocytes # (A) 1.4 k/uL (1.0-4.8); Lymphocytes % (A) 23 %; MCH 32.4 pg (25.0-35.0); MCHC 34.9 g/dL (31.0-37.0); MCV 92.7 fL (80.0-100.0); Mean Platelet Volume 7.3; Monocytes # (A) 0.4 k/uL (0-1.0); Monocytes % (A) 7 %; Neutrophils # (A) 4.1 k/uL (1.3-7.7); Neutrophils % (A) 67 %; Platelet Count 211 k/uL (150-450); RBC 4.66 m/uL (4.30-5.90); RDW 12.7 % (11.5-15.5); WBC 6.1 k/uL (3.8-10.6)
[2020-09-15 14:28] LABS: African American GFR (CKD) >90 (>60 ml/min/1.73 sqM); Anion Gap 8 mmol/L; Blood Urea Nitrogen 16 mg/dL (9-20); Calcium 9.5 mg/dL (8.4-10.2); Carbon Dioxide 24 mmol/L (22-30); Chloride 107 mmol/L (98-107); Glucose 99 mg/dL (74-99); Magnesium 1.8 mg/dL (1.6-2.3); Non-African American GFR(CKD) >90 (>60 ml/min/1.73 sqM); Potassium 4.2 mmol/L (3.5-5.1); Sodium 139 mmol/L (137-145)
[2020-09-15 14:55] VITALS: BP 129/86; PULSE 55
--- NOTE | 2020-09-15 15:01 | CT ---
EXAMINATION TYPE: CT brain wo con DATE OF EXAM: 09/15/2020 COMPARISON: 06/07/2014 HISTORY: odd mouth movements for [address] DLP: 1159.4 mGycm Automated exposure control for dose reduction was used. FINDINGS: Mild generalized degenerative change. No evidence of acute hemorrhage or mass effect. No midline shif t. Craniocervical junction maintained. Sella turcica has a normal appearance. Calvarium intact. Nonspeci fic low attenuation in the white matter. Orbits are symmetric in size. IMPRESSION: DEGENERATIVE AND NONSPECIFIC WHITE MATTER CHANGE WITH NO DIAGNOSTIC EVIDENCE OF ACUTE HEMORRHAGE OR M ASS EFFECT.
== END 2020-09-15 15:21 | disposition home or self-care (01) ==
LOC: EC 13:29
DX: F95.9 Tic disorder, unspecified (principal); E78.5 Hyperlipidemia, unspecified; Z86.711 Personal history of pulmonary embolism; Z86.718 Personal history of other venous thrombosis and embolism; Z79.01 Long term (current) use of anticoagulants
CPT/HCPCS: 36415; 70450; 80048; 83735; 85025; 99284

== ENCOUNTER → 2021-04-14 | Outpatient (CLI) | payer BC ==
--- NOTE | 2021-04-15 02:42 | MR ---
EXAMINATION TYPE: MR brain wo/w con DATE OF EXAM: 04/14/2021 COMPARISON: January 02, 2010 HISTORY: Mouth twitching CONTRAST: Standard multiplanar, multisequence MRI departmental protocol images were obtained without contrast a nd with 10 mL intravenous gadolinium contrast. Multiplanar multiecho imaging of the brain without and with IV contrast. There is minimal atrophy appropriate for age. There is no mass effect or midline shift. There is no s ign of intracranial hemorrhage. Skull base is intact. Brainstem is intact. Corpus callosum is intact. Diffusion images show no evidence of an acute infarct. There is no evidence of orbital mass. There is no evidence of posterior fossa mass. Internal auditory canals appear normal. Vasques and white matter s tructures have fairly normal signal pattern. There are scattered small white matter high signal foci at the vasques-white matter junction both cerebral hemispheres measuring less than 3 mm and could relate to some minimal microvascular ischemia. Total numbers less than 10. There is no evidence of cerebral edema. Contrast images show no pathologic enhancement. There is normal enhancement of the venous sinuses. IMPRESSION: Minimal white matter signal changes could relate to some microvascular ischemia. Otherwise negative e xam. No adverse change overall compared to old exam
== END | disposition home or self-care (01) ==
LOC: RADMRIMAIN 12:30
PROVIDERS: ATTEND Psychiatry & Neurology Neurology
DX: R93.0 Abnormal findings on diagnostic imaging of skull and head, not elsewhere classified (principal)
CPT/HCPCS: 70553; A9585